=== PATIENT | female | born 1970 | race Caucasian/White ===

== ENCOUNTER 2016-12-22 22:08 | Emergency (ER) | payer OTHER ==
[2016-12-22 22:19] VITALS: BP 154/108; PULSE 82; TEMP 98.7; BMI 29.2
[2016-12-23] MEDS ORDERED: METOCLOPRAMIDE HCL INJECTION 10 MG/2 ML VIAL IVPB ONE (00:08)
[2016-12-23] MEDS ORDERED: SODIUM CHLORIDE 1,000 ML IV STA (00:08)
--- NOTE | 2016-12-23 00:08 | PDOC ---
History of Present Illness - General Chief Complaint: Cold Symptoms Stated Complaint: COLD SYMPTOMS Time Seen by Provider: 12/22/16 22:56 History Source: Patient Exam Limitations: No Limitations - History of Present Illness Initial Comments: 12/23/16 00:07 46-year-old female with no medical history presents to the emergency department complaining of pleuritic mid chest/lower back pain with subjective fever 2 days along with a intermittent nonradiating frontal headache with dry throat/ rhinorrhea but denies chills, nausea/vomiting, neck pains, cough, shortness of breath, abdominal pains, urinary symptoms. Chest/back pain is exacerbated on deep inspiration and coughing and alleviated at rest. Patient denies any sick contacts. Timing/Duration: reports: other (x2d) Possible Cause: Yes: no prior episodes Past History - Past Medical History Allergies/Adverse Reactions: Allergies Allergy/AdvReac Type Severity Reaction Status Date / Time morphine Allergy Verified 03/05/16 23:30 Home Medications: Ambulatory Orders Ibuprofen [Motrin -] 400 mg PO TID #30 tablet 12/27/12 Oxycodone HCl/Acetaminophen [Percocet 5-325 mg Tablet] 1 tab PO Q4H 03/05/16 HTN: Yes - Surgical History Cholecystectomy: Yes - Immunization History Immunization Up to Date: Yes - Suicide/Smoking/Psychosocial Hx Smoking Status: No Smoking History: Never smoked Have you smoked in the past 12 months: No Number of Cigarettes Smoked Daily: 0 Information on smoking cessation initiated: No Hx Alcohol Use: No Drug/Substance Use Hx: No Substance Use Type: None Review of Systems - Review of Systems Able to Perform ROS?: Yes Comments:: 12/23/16 00:07 CONSTITUTIONAL: +subjective fever Absent: chills, diaphoresis, generalized weakness, malaise, loss of appetite HEENT: +rhinnorhea, nasal congestion, Absent: throat pain, throat swelling, difficulty swallowing, mouth swelling, ear pain, eye pain, visual Changes CARDIOVASCULAR: +pleuritic mid cp Absent: loss of consciousness, palpitations, irregular heart rate, peripheral edema RESPIRATORY: Absent: cough, shortness of breath, dyspnea with exertion, orthopnea, wheezing, stridor, hemoptysis GASTROINTESTINAL: Absent: abdominal pain, abdominal distension, nausea, vomiting, diarrhea, constipation, melena, hematochezia GENITOURINARY: Absent: dysuria, frequency, urgency, hesitancy, hematuria, flank pain, genital pain MUSCULOSKELETAL: mid parathoracic pain Absent: myalgia, arthralgia, joint swelling SKIN: Absent: rash, itching, pallor NEUROLOGIC: +Frontal QUINTANILLA Absent: focal weakness or paresthesias, dizziness, unsteady gait, seizure, mental status changes, bladder or bowel incontinence Is the patient limited Swedish proficient: No *Physical Exam - Vital Signs Last Vital Signs Temp Pulse Resp BP Pulse Ox 98.7 F 82 18 154/108 99 12/22/16 22:15 12/22/16 22:15 12/22/16 22:15 12/22/16 22:15 12/22/16 22:15 - Physical Exam Comments: 12/23/16 01:34 GENERAL: Well developed, well nourished. Awake and alert. No acute distress. HEENT: Normocephalic, atraumatic. PERRLA, EOMI. No conjunctival pallor. Sclera are non- icteric. Moist mucous membranes. Oropharynx is clear. NECK: Supple. Full ROM. No JVD. Carotid pulses 2+ and symmetric, without bruits. No thyromegaly. No lymphadenopathy. CARDIOVASCULAR: Regular rate and rhythm. No murmurs, rubs, or gallops. Distal pulses are 2+ and symmetric. PULMONARY: No evidence of respiratory distress. Lungs clear to auscultation bilaterally. No wheezing, rales or rhonchi. ABDOMINAL: Soft. Non-tender. Non-distended. No rebound or guarding. No organomegaly. Normoactive bowel sounds. MUSCULOSKELETAL Normal range of motion at all joints. No bony deformities or tenderness. No CVA tenderness. EXTREMITIES: No cyanosis. No clubbing. No edema. No calf tenderness. SKIN: Warm and dry. Normal capillary refill. No rashes. No jaundice. Heart Score/ECG Review - History History: Slightly suspicious - Electrocardiogram EKG: Normal - Age Age: 45-65 - Risk Factors Based on the list above the patient has:: No risk factors known Progress Note - Progress Note Progress Note: 0115hrs:Staff was looking for the patient to obtain a chest x-ray was found IV saline lock on the bed and the patient is noted to be found in the emergency department. *DC/Admit/Observation/Transfer Diagnosis at time of Disposition: Viral syndrome Headache Qualifiers: Headache type: tension-type Headache chronicity pattern: acute headache Intractability: not intractable Qualified Code(s): G44.209 - Tension-type headache, unspecified, not intractable - Discharge Dispostion Disposition: ELOPED Admit: No - Referrals - Patient Instructions
[2016-12-23] MEDS ORDERED: METOCLOPRAMIDE HCL INJECTION 10 MG/2 ML VIAL ONE (00:23)
--- NOTE | 2016-12-23 00:46 | PDOC ---
*Physical Exam - Vital Signs Last Vital Signs Temp Pulse Resp BP Pulse Ox 98.7 F 82 18 154/108 99 12/22/16 22:15 12/22/16 22:15 12/22/16 22:15 12/22/16 22:15 12/22/16 22:15 ED Treatment Course - Medications Given in the ED: ED Medications Discontinued Medications Generic Name Dose Route Start Last Admin Trade Name Freq PRN Reason Stop Dose Admin Metoclopramide HCl 10 mg 12/23/16 00:08 12/23/16 00:28 Reglan Injection - IVPB 12/23/16 00:09 10 mg ONCE ONE Administration Medical Decision Making - Medical Decision Making 12/23/16 00:46 agree with care from SHERRY Olivares *DC/Admit/Observation/Transfer Diagnosis at time of Disposition: Headache, Viral syndrome - Discharge Dispostion Disposition: ELOPED
--- NOTE | 2016-12-23 11:48 | EKG ---
Test Reason : Blood Pressure : / mmHG Vent. Rate : 064 BPM Atrial Rate : 064 BPM P-R Int : 140 ms QRS Dur : 080 ms QT Int : 422 ms P-R-T Axes : 024 039 028 degrees QTc Int : 435 ms NORMAL SINUS RHYTHM T WAVE ABNORMALITY, CONSIDER ANTERIOR ISCHEMIA ABNORMAL ECG WHEN COMPARED WITH ECG OF 05-MAR-2016 23:32, NO SIGNIFICANT CHANGE WAS FOUND Confirmed by MANUEL THOMAS, AKBAR ([id number]) on 12/23/2016 11:47:35 AM Referred By: Confirmed By:AKBAR JACKSON MD
== END 2016-12-23 01:39 | disposition left against medical advice (07) ==
LOC: JER 22:08
PROC: 3E033GC Introduction of Other Therapeutic Substance into Peripheral Vein, Percutaneous Approach (ICD-10-PCS; principal; 2016-12-22)
DX: B34.9 Viral infection, unspecified (principal); G44.209 Tension-type headache, unspecified, not intractable; J34.89 Other specified disorders of nose and nasal sinuses
CPT/HCPCS: 87804; 93005; 93010; 96374; 99282-25

== ENCOUNTER 2018-12-05 18:34 | Emergency (ER) | payer OTHER ==
--- NOTE | 2018-12-05 19:09 | PDOC ---
Rapid Medical Evaluation Time Seen by Provider: 12/05/18 19:07 Medical Evaluation: Allergies Allergy/AdvReac Type Severity Reaction Status Date / Time No Known Allergies Allergy Verified 10/20/17 17:52 12/05/18 19:08 CC: acute on chronic lower back pain PE: No focal findings. Orders: urine Patient is to proceed to ER for further evaluation. Discharge Disposition - Diagnosis Back pain - Referrals - Patient Instructions - Post Discharge Activity
[2018-12-05 19:12] VITALS: BP 139/85; PULSE 64; TEMP 98.7; BMI 28.1
[2018-12-05] MEDS ORDERED: KETOROLAC TROMETHAMINE 60 MG/2 ML VIAL IM ONE (20:09)
--- NOTE | 2018-12-05 20:13 | PDOC ---
History of Present Illness - General Chief Complaint: Back Pain Stated Complaint: BACK PAIN Time Seen by Provider: 12/05/18 19:07 - History of Present Illness Initial Comments: 12/05/18 20:10 47 y/o F w/o CM presents for evaluation of LBP w/B LE posterior lateral leg radiculopahy without loss of b/b or systemic symptoms. Past History - Past Medical History Allergies/Adverse Reactions: Allergies Allergy/AdvReac Type Severity Reaction Status Date / Time No Known Allergies Allergy Verified 12/05/18 19:08 Home Medications: Ambulatory Orders Ibuprofen 800 mg PO TID #30 tablet 10/20/17 Cyclobenzaprine HCl [Flexeril 10 mg] 10 mg PO HS PRN #10 tablet 12/05/18 Methylprednisolone [Medrol Dose Yong] 4 mg PO ASDIR #21 tablet 12/05/18 COPD: No HTN: No - Surgical History Cholecystectomy: Yes - Immunization History Immunization Up to Date: Yes - Psycho Social/Smoking Cessation Hx Smoking Status: No Smoking History: Never smoked Have you smoked in the past 12 months: No Number of Cigarettes Smoked Daily: 0 Information on smoking cessation initiated: No Hx Alcohol Use: No Drug/Substance Use Hx: No Substance Use Type: None Review of Systems - Review of Systems Constitutional: No: Fever : No: Incontinence Musculoskeletal: Yes: Back Pain *Physical Exam - Vital Signs Last Vital Signs Temp Pulse Resp BP Pulse Ox 98.7 F 64 16 139/85 99 12/05/18 19:08 12/05/18 19:08 12/05/18 19:08 12/05/18 19:08 12/05/18 19:08 - Physical Exam Comments: 12/05/18 20:11 Lumbar spine skin color and temperature are normal. There is decreased range of motion. 5 out of 5 strength in bilateral lower extremities.Straight leg raise test is negative bilaterally. Thighs and calves are soft and nontender. There are no gross sensory motor deficits. Neurovascularly intact. Medical Decision Making - Medical Decision Making 12/05/18 20:11 Discussed lumbar radiculopahy the use of the steroids and flexeril as well as f/ u with spine Discharge - Discharge Information Problems reviewed: Yes Clinical Impression/Diagnosis: Back pain, Lumbar radiculopathy Condition: Stable Disposition: HOME - Admission No - Additional Discharge Information Prescriptions: Cyclobenzaprine HCl [Flexeril 10 mg] 10 mg PO HS PRN #10 tablet PRN Reason: Muscle Spasms Methylprednisolone [Medrol Dose Yong] 4 mg PO ASDIR #21 tablet - Follow up/Referral Referrals: Shady Mendoza MD [Primary Care Provider] - Daniel Wright MD, FAANS [Staff Physician] - - Patient Discharge Instructions Additional Instructions: Please start steroid pack in the morning. Take the medication as directed. The muscle relaxers one tablet before bedtime and will make you sleepy. He may take Tylenol as directed in addition to the steroid pack. Avoid anti-inflammatory such as Advil Motrin Aleve and ibuprofen. You're given an injection of a long- acting anti-inflammatory in the emergency room do not take any anti- inflammatories. Return to the emergency room should symptoms worsen or go unresolved and follow- up with neuro or spine surgery without fail in 1-2 days for further evaluation and treatment options. - Post Discharge Activity
[2018-12-05] MEDS ORDERED: KETOROLAC TROMETHAMINE 60 MG/2 ML VIAL ONE (20:21)
== END 2018-12-05 20:28 | disposition home or self-care (01) ==
LOC: JERFT 18:34
PROC: 3E0233Z Introduction of Anti-inflammatory into Muscle, Percutaneous Approach (ICD-10-PCS; principal; 2018-12-05)
DX: M54.16 Radiculopathy, lumbar region (principal)
CPT/HCPCS: 96372; 99282-25

== ENCOUNTER 2022-01-18 22:47 | Emergency (ER) | payer OTHER ==
[2022-01-18 23:01] VITALS: BP 112/79; PULSE 85; RESP 19; TEMP 97.9; BMI 31.3
[2022-01-19 01:25] LABS: BASO % 0.6 % (0-2.0); EOS % 0.9 % (0-4.5); HEMATOCRIT 38.5 % (32.4-45.2); HEMOGLOBIN 12.6 GM/dL (10.7-15.3); LYMPH % 31.8 % (8-40); MCH 26.8 pg (25.7-33.7); MCHC 32.7 g/dl (32.0-36.0); MEAN CELL VOLUME 81.9 fl (80-96); MEAN PLT VOLUME 8.7 fl (7.5-11.1); MONO % 7.3 % (3.8-10.2); NEUT % 59.4 % (42.8-82.8); PLATELET COUNT 321 10^3/uL (134-434); RDW 14.7 % (11.6-15.6); WHITE BLOOD COUNT 11.4 K/mm3 (4.0-10.0)
[2022-01-19 01:51] LABS: BLOOD UREA NITROGEN 11.8 mg/dL (7-18)
[2022-01-19 01:52] LABS: CREATININE 0.9 mg/dL (0.55-1.3)
[2022-01-19 01:53] LABS: ALBUMIN 3.5 g/dl (3.4-5.0); BILIRUBIN,TOTAL 0.4 mg/dL (0.2-1); TOT PROT 7.3 g/dl (6.4-8.2)
== END 2022-01-19 03:16 | disposition home or self-care (01) ==
LOC: JER 22:47
DX: N93.9 Abnormal uterine and vaginal bleeding, unspecified (principal)
CPT/HCPCS: 36415; 76830-TC; 80053; 84703; 85025; 86850; 86900; 86901; 99284-25

== ENCOUNTER 2022-02-10 04:34 | Day surgery (SDC) | payer OTHER ==
[2022-02-06 15:46] VITALS: BMI 31.3
[2022-02-10] MEDS ORDERED: DEXAMETHASONE SOD PHOSPHATE 10 MG/1 ML VIAL ONE (08:01)
[2022-02-10] MEDS ORDERED: LIDOCAINE HCL/PF 1% SDV 5ML VIAL ONE (08:01)
[2022-02-10 12:32] VITALS: RESP 18
[2022-02-10] MEDS ORDERED: FENTANYL CITRATE/PF 50 MCG/ML VIAL ONE (14:41)
[2022-02-10] MEDS ORDERED: MIDAZOLAM HCL 2 MG/2 ML SINGLE DOSE VIAL ONE ×2 (14:41→14:45)
[2022-02-10] MEDS ORDERED: PROTAMINE SULFATE 50 MG/5 ML VIAL ONE (14:46)
[2022-02-10] MEDS ORDERED: PROPOFOL 20 ML ONE (14:47)
[2022-02-10 16:16] VITALS: BP 125/89; PULSE 75; TEMP 97.8
== END 2022-02-10 16:05 | disposition home or self-care (01) ==
LOC: JASU-SURG 04:34
PROVIDERS: ATTEND Pain Medicine Pain Medicine
PROC: 3E0R33Z Introduction of Anti-inflammatory into Spinal Canal, Percutaneous Approach (ICD-10-PCS; 2022-02-10)
PROC: 3E0R3BZ Introduction of Anesthetic Agent into Spinal Canal, Percutaneous Approach (ICD-10-PCS; principal; 2022-02-10 14:00)
DX: M47.26 Other spondylosis with radiculopathy, lumbar region (principal)
CPT/HCPCS: 76000-TC-FY; 81025; J1100

== ENCOUNTER → 2022-03-10 | Day surgery (SDC) | payer OTHER ==
[2022-03-03 15:07] VITALS: BMI 31.1
[~2022-03-10] MED LIST: BUPIVACAINE HCL/PF 0.5% (5 MG/ML) 30 ML VIAL IJ ONE; BUPIVACAINE HCL/PF 0.5% (5MG/ML) 10 ML VIAL ONE; LIDOCAINE HCL 1% PRESERVATIVE FREE - 30ML VIAL IJ ONE; LIDOCAINE HCL/PF 1% SDV 5ML VIAL ONE; TRIAMCINOLONE ACET 40MG/1ML VIAL ONE; TRIAMCINOLONE ACETONIDE 40 MG/ML 10 ML VIAL IJ ONE
== END | disposition home or self-care (01) ==
LOC: JASU-SURG 04:11
PROVIDERS: ATTEND Pain Medicine Pain Medicine
DX: Z53.8 Procedure and treatment not carried out for other reasons (principal)

== ENCOUNTER 2022-03-17 04:47 | Day surgery (SDC) | payer OTHER ==
[2022-03-16 09:05] VITALS: BMI 31.1
[2022-03-17] MEDS ORDERED: BUPIVACAINE HCL/PF 0.5% (5MG/ML) 10 ML VIAL ONE (07:14)
[2022-03-17] MEDS ORDERED: LIDOCAINE HCL/PF 1% SDV 5ML VIAL ONE (07:14)
[2022-03-17] MEDS ORDERED: TRIAMCINOLONE ACET 40MG/1ML VIAL ONE (07:34)
[2022-03-17] MEDS ORDERED: DEXAMETHASONE SOD PHOSPHATE 4 MG/1 ML VIAL ONE (07:42)
[2022-03-17 08:24] VITALS: RESP 18
[2022-03-17 11:28] VITALS: BP 131/81; PULSE 66; TEMP 98
== END 2022-03-17 10:00 | disposition home or self-care (01) ==
LOC: JASU-SURG 04:47
PROVIDERS: ATTEND Pain Medicine Pain Medicine
PROC: 3E0U33Z Introduction of Anti-inflammatory into Joints, Percutaneous Approach (ICD-10-PCS; principal; 2022-03-17)
PROC: 3E0U3BZ Introduction of Anesthetic Agent into Joints, Percutaneous Approach (ICD-10-PCS; 2022-03-17)
DX: M53.3 Sacrococcygeal disorders, not elsewhere classified (principal)
CPT/HCPCS: 76000-TC-FY

== ENCOUNTER 2022-05-19 04:24 | Day surgery (SDC) | payer OTHER ==
[2022-05-15 15:42] VITALS: BMI 31.1
[~2022-05-19 04:24] MED LIST changes: -BUPIVACAINE HCL/PF 0.5% (5 MG/ML) 30 ML VIAL IJ ONE; -BUPIVACAINE HCL/PF 0.5% (5MG/ML) 10 ML VIAL ONE; +BUPIVACAINE HCL/PF 0.75% 10 ML VIAL PNB ONE; +LIDOCAINE 1% P/F 10 MG/ML VIAL PNB ONE; -LIDOCAINE HCL 1% PRESERVATIVE FREE - 30ML VIAL IJ ONE; -LIDOCAINE HCL/PF 1% SDV 5ML VIAL ONE; -TRIAMCINOLONE ACET 40MG/1ML VIAL ONE; -TRIAMCINOLONE ACETONIDE 40 MG/ML 10 ML VIAL IJ ONE
[2022-05-19] MEDS ORDERED: BUPIVACAINE HCL/PF 0.75% 10 ML VIAL ONE (07:24)
[2022-05-19] MEDS ORDERED: LIDOCAINE HCL/PF 1% SDV 5ML VIAL ONE (07:24)
[2022-05-19 09:12] VITALS: BP 139/84; PULSE 81; RESP 18; TEMP 97.8
== END 2022-05-19 11:00 | disposition home or self-care (01) ==
LOC: JASU-SURG 04:24
PROVIDERS: ATTEND Pain Medicine Pain Medicine
DX: Z53.8 Procedure and treatment not carried out for other reasons (principal)